=== PATIENT | male | born 1985 ===

== ENCOUNTER 2021-02-24 14:47 | Emergency (ER) | payer SELFPAY ==
[~2021-02-24] VITALS: Ht 185.4 cm; Wt 79.4 kg
[2021-02-24] MEDS ORDERED: LIDOCAINE HCL 2 %PF INJ 10ML AMP IJ ONE (16:45)
[2021-02-24 17:00] VITALS: BP 119/80
[2021-02-24] MEDS ORDERED: LIDOCAINE 2% (LOCAL ANESTH.) PF 5ml SDV IJ ONE (17:00)
[2021-02-24] MEDS ORDERED: TETANUS-DIPTH-ACEL PERTUSSIS 0.5ML SYR Tdap IM ONE (17:30)
[2021-02-24] MEDS ORDERED: BACITRACIN TOP OINT 1 UD PKG TOP ONE (17:30)
== END 2021-02-24 18:48 | disposition home or self-care (01) ==
LOC: ER 14:47
DX: S81.812A Laceration without foreign body, left lower leg, initial encounter (principal); S81.811A Laceration without foreign body, right lower leg, initial encounter; W25.XXXA Contact with sharp glass, initial encounter; Y93.89 Activity, other specified; Y92.89 Other specified places as the place of occurrence of the external cause; Y99.8 Other external cause status
CPT/HCPCS: 12002; 73590; 90471; 90715; 99283; J2001; 12004